=== PATIENT | female | born 1960 | race Caucasian/White ===

== ENCOUNTER → 2016-11-09 | Outpatient (CLI) | payer OTHER | LOC: FIMAGING 16:02 | DX: Z12.31 Encounter for screening mammogram for malignant neoplasm of breast (principal); Z85.3 Personal history of malignant neoplasm of breast | CPT/HCPCS: G0202 ==

== ENCOUNTER → 2017-11-13 | Outpatient (CLI) | payer OTHER | LOC: FIMAGING 16:06 | PROVIDERS: ATTEND Internal Medicine Hematology & Oncology | DX: Z12.31 Encounter for screening mammogram for malignant neoplasm of breast (principal); Z85.3 Personal history of malignant neoplasm of breast; Z80.3 Family history of malignant neoplasm of breast; Z92.3 Personal history of irradiation ==

== ENCOUNTER → 2018-11-14 | Outpatient (CLI) | payer OTHER | LOC: FIMAGING 15:26 | PROVIDERS: ATTEND Internal Medicine Hematology & Oncology | DX: Z12.31 Encounter for screening mammogram for malignant neoplasm of breast (principal); Z85.3 Personal history of malignant neoplasm of breast; Z92.3 Personal history of irradiation; Z80.3 Family history of malignant neoplasm of breast ==